=== PATIENT | female | born 1955 | race Caucasian/White ===

== ENCOUNTER 2018-10-27 07:21 | Day surgery (SDC) | payer MEDICARE, BC ==
[2018-10-27] MEDS: POLYMYXIN/BACITRACIN 1L IRRIG (09:19)
[2018-10-27] MEDS: BUPIVACAINE 0.25% (MPF) 30 ML INJ (09:19)
[2018-10-27] MEDS ORDERED: METOCLOPRAMIDE 10 MG INJ (09:26)
[2018-10-27] MEDS ORDERED: LIDOCAINE 2% (SDV) 5 ML INJ (09:26)
[2018-10-27] MEDS ORDERED: ONDANSETRON 4 MG INJ (09:26)
[2018-10-27] MEDS ORDERED: MEPERIDINE 100 MG INJ (09:26)
[2018-10-27] MEDS ORDERED: PROPOFOL 20 ML (09:26)
[2018-10-27] MEDS ORDERED: EPHEDrine 25 MG/5 ML SYG (09:26)
[2018-10-27] MEDS ORDERED: CLINDAMYCIN 900 MG (PMX) 50 ML IVPB (09:26)
[2018-10-27] MEDS: CLINDAMYCIN 900 MG (PMX) 50 ML IVPB (09:40)
[2018-10-27] MEDS ORDERED: METOCLOPRAMIDE 10 MG INJ IV (11:00)
[2018-10-27] MEDS ORDERED: HYDROmorphONE 1 MG/5 ML IV SYRINGE IV (11:00)
[2018-10-27] MEDS ORDERED: OXYCODONE/ACETAMINOPHEN (5/325) TAB PO ×2 (11:00)
[2018-10-27] MEDS ORDERED: DIPHENHYDRAMINE 50 MG INJ IV (11:00)
[2018-10-27] MEDS ORDERED: FENTAnyl 50 MCG/ML VIAL IV (11:00)
[2018-10-27] MEDS ORDERED: MEPERIDINE 25 MG INJ IV (11:00)
[2018-10-27] MEDS ORDERED: MIDAZOLAM 1 MG/ML 2 ML INJ IV (11:00)
[2018-10-27] MEDS ORDERED: BACITRACIN/POLYMYXIN 28.35 GM OINT TOP (11:23)
[2018-10-27] MEDS ORDERED: OCULAR LUBRICANT 3.5 GM OPH OINT (11:41)
[2018-10-27] MEDS: FENTAnyl 50 MCG/ML VIAL IV ×5 (12:13→13:20)
[2018-10-27] MEDS: ONDANSETRON 4 MG INJ IV (12:13)
[2018-10-27] MEDS: HYDROmorphONE 1 MG/5 ML IV SYRINGE IV ×4 (12:14→13:00)
[2018-10-27] MEDS ORDERED: ROPIVACAINE 0.5 % 30 ML VIAL (13:30)
[2018-10-27] MEDS: KETOROLAC 30 MG INJ IV (14:02)
== END 2018-10-27 18:10 | disposition home or self-care (01) ==
LOC: SDS 07:21
DX: S52.572A Other intraarticular fracture of lower end of left radius, initial encounter for closed fracture (principal); G40.909 Epilepsy, unspecified, not intractable, without status epilepticus; Z87.891 Personal history of nicotine dependence
CPT/HCPCS: 25609; 73110-LT